=== PATIENT | female | born 1990 ===

== ENCOUNTER 2022-01-03 13:27 | Emergency (ER) | payer OTHER | END 2022-01-03 16:03 | disposition home or self-care (01) | LOC: ER1 13:27 | DX: S16.1XXA Strain of muscle, fascia and tendon at neck level, initial encounter (principal); F17.200 Nicotine dependence, unspecified, uncomplicated; V89.2XXA Person injured in unspecified motor-vehicle accident, traffic, initial encounter; Y92.410 Unspecified street and highway as the place of occurrence of the external cause | CPT/HCPCS: 72125; 99283 ==